=== PATIENT | male | born 1950 | race Hispanic/Latino ===

== ENCOUNTER 2017-02-22 15:05 | Emergency (ER) | payer MEDICARE ==
[~2017-02-22] VITALS: Ht 162.6 cm; Wt 86.8 kg
[2017-02-22 16:05] LABS: HEMATOCRIT 39.2 % (39.0-50.0); HEMOGLOBIN 13.6 g/dl (14.0-18.0); IMMATURE GRANULOCYTES 0.4 % (0.0-1.0); MEAN CELL VOLUME 94.2 fL CALC (80.0-100.0); MEAN CORPUSCULAR HGB 32.7 pG CALC (26.0-32.0); MEAN CORPUSCULAR HGB CONC 34.7 g/L CALC (32.0-36.0); NEUT# 4.54 thou/uL (1.82-7.42); RED BLOOD COUNT 4.16 mill/uL (4.70-6.10); RED CELL DISTRI WIDTH 12.6 % (11.5-15.5)
[2017-02-22 16:15] LABS: URINE BILIRUBIN - DIPSTICK NEGATIVE (NEGATIVE); URINE BLOOD DIPSTICK NEGATIVE (NEGATIVE); URINE CLARITY CLEAR; URINE COLOR YELLOW; URINE GLUCOSE - DIPSTICK >=1000 mg/dL (NEGATIVE); URINE KETONE NEGATIVE (NEGATIVE); URINE LEUK ESTERASE NEGATIVE (NEGATIVE); URINE NITRITE - DIPSTICK NEGATIVE (Negative); URINE PH 5.5 (4.5-8.0); URINE PROTEIN - DIPSTICK NEGATIVE (NEG-TRACE); URINE UROBILINOGEN - DIPSTICK 0.2 E.U./dL (0.2)
[2017-02-22 16:19] LABS: ALBUMIN 4.2 g/dL (3.2-5.0); ALKALINE PHOSPHATASE 198 u/l (38-126); ANION GAP 20 (6-22 (CALC)); BILIRUBIN, TOTAL 0.8 mg/dL (0.0-1.4); BUN 10 mg/dL (8-23); BUN/CREATININE RATIO 15 (12-20 (CALC)); CALCIUM 9.3 mg/dL (8.4-10.2); CARBON DIOXIDE 24 mmol/l (22-30); CHLORIDE 101 mmol/l (95-108); CREATININE 0.6 mg/dL (0.7-1.3); GFR > 60 ML/MIN (>=60 (CALC)); GFR FOR AFR.AMER. > 60 ML/MIN (>=60 (CALC)); GLUCOSE 416 mg/dL (82-115); SGOT/AST 39 u/l (19-48); SGPT/ALT 45 u/l (11-66); SODIUM 141 mmol/l (137-146); TOTAL PROTEIN 8.6 g/dL (6.3-8.2)
[2017-02-22 16:31] LABS: MYOGLOBIN 20 ng/mL (0 - 121)
[2017-02-22] MEDS ORDERED: AMLODIPINE10 MG PO (16:45)
[2017-02-22] MEDS ORDERED: METFORMIN1000 MG PO (16:45)
[2017-02-22] MEDS ORDERED: NAPROSYN500 MG PO (16:45)
[2017-02-22] MEDS ORDERED: LORTAB 5-325 MG1 TAB PO (16:45)
[2017-02-22 17:00] VITALS: BP 175/82
== END 2017-02-22 17:09 | disposition home or self-care (01) ==
LOC: ED 15:05
PROVIDERS: Emergency Medicine
DX: M54.31 Sciatica, right side (principal); I16.0 Hypertensive urgency; E11.65 Type 2 diabetes mellitus with hyperglycemia; Z91.14 Patient's other noncompliance with medication regimen

== ENCOUNTER 2018-01-10 08:43 | Emergency (ER) | payer MEDICARE, MEDICAID ==
[~2018-01-10] VITALS: Ht 162.6 cm; Wt 83.0 kg
[~2018-01-10 08:43] MED LIST: AMLODIPINE10 MG PO; LORTAB 5-325 MG1 TAB PO; METFORMIN1000 MG PO; NAPROSYN500 MG PO
[2018-01-10] MEDS ORDERED: METFORMIN850 MG PO (09:01)
[2018-01-10] MEDS ORDERED: ENALAPRIL10 MG PO (09:02)
[2018-01-10] MEDS ORDERED: GLYBURIDE5 M1 PO (09:03)
[2018-01-10] MEDS ORDERED: DELTASONE20 MG PO (09:26)
[2018-01-10] MEDS ORDERED: TRAMADOL HYDROC50 MG PO (09:26)
[2018-01-10] MEDS ORDERED: FLEXERIL PO (09:26)
[2018-01-10] MEDS ORDERED: AMLODIPINE10 MG PO (09:26)
[2018-01-10 09:59] VITALS: BP 197/93
== END 2018-01-10 09:59 | disposition home or self-care (01) ==
LOC: ED 08:43
DX: M54.41 Lumbago with sciatica, right side (principal); I16.0 Hypertensive urgency

== ENCOUNTER 2018-01-31 11:59 | Emergency (ER) | payer MEDICARE, MEDICAID ==
[~2018-01-31] VITALS: Ht 162.6 cm; Wt 88.2 kg
[~2018-01-31 11:59] MED LIST changes: +DELTASONE20 MG PO; +ENALAPRIL10 MG PO; +FLEXERIL PO; +GLYBURIDE5 M1 PO; +METFORMIN850 MG PO; +TRAMADOL HYDROC50 MG PO
[2018-01-31 12:51] LABS: HEMATOCRIT 41.4 % (39.0-50.0); HEMOGLOBIN 14.7 g/dl (14.0-18.0); IMMATURE GRANULOCYTES 0.3 % (0.0-1.0); MEAN CELL VOLUME 92.6 fL CALC (80.0-100.0); MEAN CORPUSCULAR HGB 32.9 pG CALC (26.0-32.0); MEAN CORPUSCULAR HGB CONC 35.5 g/L CALC (32.0-36.0); NEUT# 7.36 thou/uL (1.82-7.42); RED BLOOD COUNT 4.47 mill/uL (4.70-6.10); RED CELL DISTRI WIDTH 12.4 % (11.5-15.5)
[2018-01-31 13:05] LABS: ALBUMIN 4.6 g/dL (3.2-5.0); ALKALINE PHOSPHATASE 185 u/l (38-126); ANION GAP 23 (6-22 (CALC)); BUN 11 mg/dL (8-23); BUN/CREATININE RATIO 14 (12-20 (CALC)); CARBON DIOXIDE 21 mmol/l (22-30); CHLORIDE 99 mmol/l (95-108); CREATININE 0.7 mg/dL (0.7-1.3); GFR > 60 ML/MIN (>=60 (CALC)); GFR FOR AFR.AMER. > 60 ML/MIN (>=60 (CALC)); POTASSIUM 3.3 mmol/l (3.5-5.1); SGPT/ALT 48 u/l (11-66); SODIUM 140 mmol/l (137-146)
[2018-01-31 13:08] LABS: SGOT/AST 90 u/l (19-48)
[2018-01-31 13:29] LABS: URINE BILIRUBIN - DIPSTICK NEGATIVE (NEGATIVE); URINE BLOOD DIPSTICK NEGATIVE (NEGATIVE); URINE GLUCOSE - DIPSTICK NEGATIVE (NEGATIVE); URINE KETONE TRACE mg/dL (NEGATIVE); URINE LEUK ESTERASE NEGATIVE (NEGATIVE); URINE NITRITE - DIPSTICK NEGATIVE (Negative); URINE PH 5.5 (4.5-8.0); URINE PROTEIN - DIPSTICK 100 mg/dL (NEG-TRACE); URINE SPECIFIC GRAVITY >=1.030; URINE UROBILINOGEN - DIPSTICK 0.2 E.U./dL (0.2)
[2018-01-31 13:33] LABS: URINE CLARITY HAZY; URINE COLOR DK. YELLOW
[2018-01-31 13:34] LABS: URINE EPITHELIAL CELLS MODERATE EPI/hpf (0-FEW); URINE WBC 0-2 WBC/hpf (0-5)
[2018-01-31 13:35] LABS: URINE AMORPH SEDIMENT MANY hpf (NONE-FER)
[2018-01-31] MEDS ORDERED: LISINOPRIL20 MG PO (13:49)
[2018-01-31] MEDS ORDERED: GLUCOPHAGE PO (13:49)
[2018-01-31 14:04] VITALS: BP 170/79
== END 2018-01-31 14:04 | disposition home or self-care (01) ==
LOC: ED 11:59
PROVIDERS: Family Medicine
DX: I16.1 Hypertensive emergency (principal); R11.0 Nausea; R53.1 Weakness; Z91.14 Patient's other noncompliance with medication regimen

== ENCOUNTER 2018-02-25 17:13 | Emergency (ER) | payer MEDICARE, MEDICAID ==
[~2018-02-25] VITALS: Ht 162.6 cm; Wt 95.5 kg
[~2018-02-25 17:13] MED LIST changes: +GLUCOPHAGE PO; +LISINOPRIL20 MG PO
[2018-02-25 17:41] LABS: IMMATURE GRANULOCYTES 0.7 % (0.0-1.0); MEAN CELL VOLUME 91.3 fL CALC (80.0-100.0); MEAN CORPUSCULAR HGB 32.5 pG CALC (26.0-32.0); MEAN CORPUSCULAR HGB CONC 35.6 g/L CALC (32.0-36.0); NEUT# 3.14 thou/uL (1.82-7.42); RED BLOOD COUNT 3.81 mill/uL (4.70-6.10); RED CELL DISTRI WIDTH 11.9 % (11.5-15.5)
[2018-02-25 17:46] LABS: URINE BILIRUBIN - DIPSTICK NEGATIVE (NEGATIVE); URINE BLOOD DIPSTICK MODERATE (NEGATIVE); URINE COLOR YELLOW; URINE GLUCOSE - DIPSTICK 500 mg/dL (NEGATIVE); URINE KETONE NEGATIVE (NEGATIVE); URINE LEUK ESTERASE NEGATIVE (NEGATIVE); URINE NITRITE - DIPSTICK NEGATIVE (Negative); URINE PROTEIN - DIPSTICK NEGATIVE (NEG-TRACE); URINE SPECIFIC GRAVITY <=1.005; URINE UROBILINOGEN - DIPSTICK 0.2 E.U./dL (0.2)
[2018-02-25 17:48] LABS: URINE CLARITY CLEAR
[2018-02-25 17:54] LABS: BARBITURATES NEGATIVE (NEGATIVE); COCAINE NEGATIVE (NEGATIVE); METHADONE NEGATIVE (NEGATIVE); OXCYCODONE NEGATIVE (NEGATIVE); TETRAHYDROCANNABIONOL NEGATIVE (NEGATIVE); TRICYLIC ANTIDEPRESSANTS NEGATIVE (NEGATIVE)
[2018-02-25 17:56] LABS: URINE HYALINE CAST FEW lpf (NONE-RARE); URINE SQUAMOUS EPITHELIAL CELL FEW EPI/hpf (0-FEW)
[2018-02-25 18:07] LABS: HEMATOCRIT 34.8 % (39.0-50.0); HEMOGLOBIN 12.4 g/dl (14.0-18.0)
[2018-02-25 18:58] LABS: ALBUMIN 3.7 g/dL (3.2-5.0); ALKALINE PHOSPHATASE 187 u/l (38-126); BILIRUBIN, TOTAL 0.5 mg/dL (0.0-1.4); BUN 16 mg/dL (8-23); BUN/CREATININE RATIO 19 (12-20 (CALC)); CARBON DIOXIDE 18 mmol/l (22-30); CHLORIDE 95 mmol/l (95-108); CREATININE 0.8 mg/dL (0.7-1.3); ETHYL ALCOHOL 289 mg/dl (0-30); GFR > 60 ML/MIN (>=60 (CALC)); GFR FOR AFR.AMER. > 60 ML/MIN (>=60 (CALC)); LIPASE 112 u/l (23-300); SGOT/AST 46 u/l (19-48); SGPT/ALT 38 u/l (11-66); TOTAL PROTEIN 7.2 g/dL (6.3-8.2)
[2018-02-25 18:59] LABS: ANION GAP 20 (6-22 (CALC)); POTASSIUM 4.6 mmol/l (3.5-5.1); SODIUM 128 mmol/l (137-146)
[2018-02-25 20:15] VITALS: BP 115/71
== END 2018-02-25 20:15 ==
LOC: ED 17:13
PROVIDERS: Family Medicine
PROC: 0T9B70Z Drainage of Bladder with Drainage Device, Via Natural or Artificial Opening (ICD-10-PCS; principal; 2018-02-25)
DX: S12.200A Unspecified displaced fracture of third cervical vertebra, initial encounter for closed fracture (principal); F10.120 Alcohol abuse with intoxication, uncomplicated; Y90.8 Blood alcohol level of 240 mg/100 ml or more; W18.39XA Other fall on same level, initial encounter; Y93.89 Activity, other specified; Y92.002 Bathroom of unspecified non-institutional (private) residence as the place of occurrence of the external cause; I10 Essential (primary) hypertension; E11.9 Type 2 diabetes mellitus without complications; Z79.84 Long term (current) use of oral hypoglycemic drugs